=== PATIENT | female | born 1970 | race Two or more races ===

== ENCOUNTER 2022-01-19 07:38 | Outpatient (CLI) | payer OTHER | END 2022-01-19 07:42 | disposition home or self-care (01) | LOC: LAB 07:38 | PROVIDERS: ATTEND Obstetrics & Gynecology | DX: N95.1 Menopausal and female climacteric states (principal); E03.8 Other specified hypothyroidism; D50.8 Other iron deficiency anemias; E55.9 Vitamin D deficiency, unspecified; I10 Essential (primary) hypertension ==

== ENCOUNTER 2022-03-08 07:34 | Outpatient (CLI) | payer OTHER | END 2022-03-08 07:46 | disposition home or self-care (01) | LOC: SONOGRAMA 07:34 | PROVIDERS: ATTEND Internal Medicine Endocrinology, Diabetes & Metabolism | DX: E04.1 Nontoxic single thyroid nodule (principal) ==

== ENCOUNTER 2022-04-04 07:31 | Outpatient (CLI) | payer OTHER | END 2022-04-04 07:32 | disposition home or self-care (01) | LOC: LAB 07:31 | PROVIDERS: ATTEND Internal Medicine Gastroenterology | DX: M25.551 Pain in right hip (principal); R19.8 Other specified symptoms and signs involving the digestive system and abdomen; E03.9 Hypothyroidism, unspecified; E78.00 Pure hypercholesterolemia, unspecified; N39.0 Urinary tract infection, site not specified; E55.9 Vitamin D deficiency, unspecified; D62 Acute posthemorrhagic anemia; E11.9 Type 2 diabetes mellitus without complications; M25.50 Pain in unspecified joint; M81.0 Age-related osteoporosis without current pathological fracture; Z12.11 Encounter for screening for malignant neoplasm of colon ==

== ENCOUNTER → 2022-04-24 | Outpatient (CLI) | payer OTHER | END | disposition home or self-care (01) | LOC: SONOGRAMA 07:48 | PROVIDERS: ATTEND Internal Medicine Gastroenterology | DX: R10.12 Left upper quadrant pain (principal) ==

== ENCOUNTER 2022-05-10 07:36 | Outpatient (CLI) | payer OTHER | END 2022-05-10 07:56 | disposition home or self-care (01) | LOC: MRI 07:36 | DX: M54.12 Radiculopathy, cervical region (principal); M60.89 Other myositis, multiple sites | CPT/HCPCS: 72141 ==

== ENCOUNTER 2022-05-24 10:39 | Outpatient (CLI) | payer OTHER | END 2022-05-24 10:45 | disposition home or self-care (01) | LOC: RAD 10:39 | DX: M70.61 Trochanteric bursitis, right hip (principal); M70.62 Trochanteric bursitis, left hip; M24.551 Contracture, right hip; M24.552 Contracture, left hip ==

== ENCOUNTER → 2022-10-19 | Outpatient (CLI) | payer OTHER | END | disposition home or self-care (01) | LOC: NUCLEAR 13:14 | PROVIDERS: ATTEND Internal Medicine Endocrinology, Diabetes & Metabolism | DX: M85.80 Other specified disorders of bone density and structure, unspecified site (principal) ==

== ENCOUNTER → 2022-10-20 09:30 | Outpatient (CLI) | payer OTHER | END | disposition home or self-care (01) | LOC: LAB 09:30 | PROVIDERS: ATTEND Internal Medicine Rheumatology | DX: M35.89 Other specified systemic involvement of connective tissue (principal); N39.0 Urinary tract infection, site not specified; D64.89 Other specified anemias; R79.89 Other specified abnormal findings of blood chemistry; E78.9 Disorder of lipoprotein metabolism, unspecified; R80.8 Other proteinuria ==

== ENCOUNTER 2022-12-24 06:59 | Outpatient (CLI) | payer OTHER | END 2022-12-24 07:05 | disposition home or self-care (01) | LOC: LAB 06:59 | PROVIDERS: ATTEND Obstetrics & Gynecology | DX: N95.1 Menopausal and female climacteric states (principal); R50.9 Fever, unspecified; Z20.828 Contact with and (suspected) exposure to other viral communicable diseases ==

== ENCOUNTER 2022-12-31 14:07 | Outpatient (CLI) | payer OTHER | END 2022-12-31 14:12 | disposition home or self-care (01) | LOC: RAD 14:07 | PROVIDERS: ATTEND Neurological Surgery | DX: M54.2 Cervicalgia (principal) ==